=== PATIENT | female | born 1990 | race African-American/Black ===

== ENCOUNTER 2018-09-14 22:07 | Emergency (ER) | payer OTHER ==
[~2018-09-14] VITALS: Ht 165.1 cm; Wt 54.5 kg
[2018-09-15 01:34] VITALS: BP 111/74
== END 2018-09-15 01:30 | disposition home or self-care (01) ==
LOC: EMS 22:09
DX: S05.12XA Contusion of eyeball and orbital tissues, left eye, initial encounter (principal); Y04.0XXA Assault by unarmed brawl or fight, initial encounter; Y93.89 Activity, other specified; Y92.89 Other specified places as the place of occurrence of the external cause; Y99.8 Other external cause status

== ENCOUNTER 2019-03-12 13:24 | Emergency (ER) | payer OTHER ==
[~2019-03-12] VITALS: Ht 167.6 cm; Wt 55.0 kg
[2019-03-12] MEDS ORDERED: IBUPROFEN 600 MG TABLET PO ONE (16:45)
[2019-03-12 17:36] VITALS: BP 124/77
== END 2019-03-12 17:40 | disposition home or self-care (01) ==
LOC: EMS 13:25
DX: M25.561 Pain in right knee (principal); L03.211 Cellulitis of face; R03.0 Elevated blood-pressure reading, without diagnosis of hypertension
CPT/HCPCS: 93971

== ENCOUNTER 2024-05-12 11:31 | Emergency (ER) | payer OTHER ==
[~2024-05-12] VITALS: Ht 167.6 cm; Wt 54.5 kg
[2024-05-12 11:39] VITALS: BP 147/91; PULSE 75; RESP 16; TEMP 98.2
[2024-05-12 12:10] LABS: BASOPHILS % (AUTO) 0.4 % (0.0-2.0); EOSINOPHILS % (AUTO) 0.9 % (1.0-6.0); HEMATOCRIT 33.1 % (36-46); HEMOGLOBIN 10.9 g/dL (12.0-16.0); LYMPHOCYTES # (AUTO) 1.1 K/uL (1.0-4.8); LYMPHOCYTES % (AUTO) 9.6 % (22.0-44.0); MEAN CORPUSCULAR HEMOGLOBIN 28.8 pg (26.0-34.0); MEAN CORPUSCULAR HGB CONC 32.8 G/dL (31.0-37.0); MEAN CORPUSCULAR VOLUME 88 fL (80-100); MONOCYTES # (AUTO) 0.8 K/uL (0.1-1.0); MONOCYTES % (AUTO) 6.5 % (2.0-9.0); NEUTROPHILS # (AUTO) 9.7 K/uL (1.8-7.7); NEUTROPHILS % (AUTO) 82.6 % (40.0-70.0); PLATELET COUNT (AUTO) 230 K/uL (150-450); RED BLOOD CELL COUNT(AUTO) 3.77 MIL/uL (4.00-5.20); RED CELL DISTRIBUTION WIDTH 12.3 % (11.5-14.5); WHITE BLOOD COUNT (AUTO) 11.7 K/uL (4.5-11.0)
[2024-05-12 12:17] LABS: CARBON DIOXIDE 29 mmol/L (22-29); CHLORIDE 108 mmol/L (98-107); POTASSIUM 3.9 mmol/L (3.5-5.1); SODIUM SERUM 141 mmol/L (136-145)
[2024-05-12 12:18] LABS: ANION GAP 4 mmol/L (8-16); CALCIUM, TOTAL 8.1 mg/dL (8.8-10.5); CREATININE 1.15 mg/dL (0.60-1.30); GLOMERULAR FILTR. RATE CALC > 60 mL/min (>60); GLUCOSE,RANDOM 78 mg/dL (70-110); UREA NITROGEN, BLOOD 11 mg/dL (7-18)
[2024-05-12 13:14] LABS: ALCOHOL, URINE DRUG SCREEN NEGATIVE (NEGATIVE); AMPHET/METH SCREEN,URINE NEGATIVE (NEGATIVE); BARBITURATE SCREEN, URINE NEGATIVE (NEGATIVE); BENZODIAZEPINES SCREEN,URINE NEGATIVE (NEGATIVE); CANNABINOID SCREEN,URINE NEGATIVE (NEGATIVE); COCAINE SCREEN,URINE NEGATIVE (NEGATIVE); METHADONE SCREEN, URINE NEGATIVE (NEGATIVE); OPIATE SCREEN,URINE NEGATIVE (NEGATIVE); PHENCYCLIDINE SCREEN,URINE NEGATIVE (NEGATIVE)
[2024-05-12] MEDS ORDERED: IBUP-1492 PO (14:03)
[2024-05-12] MEDS ORDERED: CEPH-558 PO (14:03)
[2024-05-12] MEDS: KETOROLAC TROMETHAMINE 60 MG/2 ML VIAL IM ONE (14:04)
[2024-05-12] MEDS: SULFAMETHOX/TRIMETH DS 800-160 MG/TABLET PO ONE (14:04)
[2024-05-12] MEDS: CEPHALEXIN MONOHYDRATE 250 MG/5 ML SUSPENSION ORAL.SYG PO ONE (14:13)
== END 2024-05-12 14:24 | disposition home or self-care (01) ==
LOC: EMS 11:31
DX: L03.116 Cellulitis of left lower limb (principal); I88.9 Nonspecific lymphadenitis, unspecified; Z98.51 Tubal ligation status
CPT/HCPCS: 99285; 93925; 93970; 80048; 85025; 36415; 96372; 80307; J1885